=== PATIENT | male | born 2005 | race Caucasian/White ===

== ENCOUNTER 2024-09-28 09:35 | Outpatient (CLI) | payer BC, OTHER, SELFPAY | END 2024-09-28 09:36 | disposition home or self-care (01) | PROVIDERS: PCP Physician Assistant Medical; Visit Provider Physician Assistant Medical | DX: I10 Essential (primary) hypertension (principal); R82.90 Unspecified abnormal findings in urine; Z11.4 Encounter for screening for human immunodeficiency virus [HIV]; Z11.59 Encounter for screening for other viral diseases | CPT/HCPCS: 80053; 80061; 84443; 86703; 86803; 87086 ==

== ENCOUNTER 2024-11-07 11:43 | Outpatient (CLI) | payer BC, OTHER, SELFPAY ==
--- NOTE | 2024-11-14 11:48 | W.PM.SLEEP ---
Sleep Study Details Details Interpreting Provider: Franny Date of Sleep Study: 11/07/24 Sleep Study Details: STUDY TYPE:? Home unattended ? BMI:? 41.09 ORDERING PROVIDER:Breezy Blanton INDICATION:? Concern about sleep apnea ? SLEEP SUMMARY:? 320 minutes monitored RESPIRATORY SUMMARY:? AHI 24 per over 1 8, 19.7 per CMS guideline Low oxygen 80 1.3% of study oxygen less than 90% Snoring 89.1% PERIODIC LIMB MOVEMENTS OF SLEEP:? Not recorded CARDIAC:? Range 45-1 awake, mean 57.4 beats per minute IMPRESSION:? Moderate obstructive sleep apnea, obesity RECOMMENDATION: Weight loss is recommended. CPAP, dental appliance and/or airway expansion surgery are all options to treat the sleep apnea in addition to weight loss.
== END 2024-11-07 11:44 | disposition home or self-care (01) ==
LOC: SLEEP 11:45
PROVIDERS: PCP Physician Assistant Medical; Visit Provider Otolaryngology
DX: G47.33 Obstructive sleep apnea (adult) (pediatric) (principal)
CPT/HCPCS: 95806

== ENCOUNTER 2025-02-15 14:16 | Outpatient (CLI) | payer BC, OTHER, SELFPAY | END 2025-02-15 14:17 | disposition home or self-care (01) | LOC: LKVREF 14:16 | PROVIDERS: PCP Physician Assistant Medical; Visit Provider Physician Assistant Medical | DX: I10 Essential (primary) hypertension (principal) | CPT/HCPCS: 80053 ==